=== PATIENT | female | born 1995 | race Hispanic/Latino ===

== ENCOUNTER 2017-10-18 08:50 | Emergency (ER) | payer OTHER ==
[2017-10-18 09:11] VITALS: BMI 32.5
[2017-10-18 09:14] VITALS: RESP 16
[2017-10-18 09:19] VITALS: TEMP 98.6
--- NOTE | 2017-10-18 09:59 | ED PDOC ---
Arrival/HPI - General Chief Complaint: GI Problem - History of Present Illness Narrative History of Present Illness (Text): 10/18/17 09:53 Pt is a 21 F with no significant PMH presents to ED with periumbilical pain that radiates to back since last night. Patient also complains of nausea, NBNB vomiting, and watery diarrhea over the same time period. Pt states this morning that pain is also in RLQ now. Pain was worsened during car ride to hospital. Pt denied CP, SOB, fever, chills, dysuria, GOETZ, dizziness. PMD: Cardiello Past Medical History - Provider Review Nursing Documentation Reviewed: Yes - Infectious Disease Hx of Infectious Diseases: None - Tetanus Immunization Tetanus Immunization: Unknown - Past Medical History Past Medical History: No Previous - Endocrine/Metabolic Hx Hypothyroidism: Yes - Psychiatric Hx Depression: No Hx Emotional Abuse: No Hx Physical Abuse: No Hx Substance Use: No - Past Surgical History Past Surgical History: No Previous - Anesthesia Hx Anesthesia: No - Suicidal Assessment Feels Threatened In Home Enviroment: No Family/Social History - Physician Review Nursing Documentation Reviewed: Yes Family/Social History: No Known Family HX Smoking Status: Never Smoked Hx Alcohol Use: Yes Frequency of alcohol use: Socially Hx Substance Use: No Hx Substance Use Treatment: No Allergies/Home Meds Allergies/Adverse Reactions: Allergies Sulfa (Sulfonamide Antibiotics) Allergy (Verified 10/18/17 09:07) REDNESS Review of Systems - Review of Systems Constitutional: Normal Eyes: Normal ENT: Normal Respiratory: Normal Cardiovascular: Normal Gastrointestinal: Abdominal Pain, Diarrhea, Nausea, Vomiting, Appetite Changes Genitourinary Female: Normal Musculoskeletal: Normal Skin: Normal Neurological: Normal Endocrine: Normal Hemo/Lymphatic: Normal Psychiatric: Normal Physical Exam Vital Signs Reviewed: Yes Vital Signs Temp Pulse Resp BP Pulse Ox 10/18/17 09:16 98.6 F 10/18/17 09:13 74 16 137/82 97 Temperature: Afebrile Blood Pressure: Normal Pulse: Regular Respiratory Rate: Normal Appearance: Positive for: Well-Appearing Pain Distress: Moderate Mental Status: Positive for: Alert and Oriented X 3 - Systems Exam Head: Present: Atraumatic, Normocephalic Extroacular Muscles: Present: EOMI Ears: Present: Normal Mouth: Present: Moist Mucous Membranes Nose (Internal): Present: Normal Inspection Neck: Present: Normal Range of Motion Respiratory/Chest: Present: Clear to Auscultation. No: Respiratory Distress, Accessory Muscle Use, Wheezes, Rales, Rhonchi Cardiovascular: Present: Regular Rate and Rhythm, Normal S1, S2. No: Murmurs Abdomen: Present: Tenderness (periumbilical), McBurney's Point Tender. No: Distention, Peritoneal Signs, Rebound, Guarding, Rovsing's Sign Present, Hernias Upper Extremity: Present: Normal Inspection Lower Extremity: Present: Normal Inspection Neurological: Present: GCS=15, CN II-XII Intact Skin: Present: Warm, Dry, Normal Color Psychiatric: Present: Alert, Oriented x 3 Medical Decision Making ED Course and Treatment: 10/18/17 10:03 Assessment: 21 yo F presents to ED with periumbilcal/RLQ abdominal pain. Plan: - CBC, CMP - Lipase - Coags - UA - Abd/pelvis CT with IV contrast 10/18/17 11:28 Abd/pelvis CT showed no acute findings, no evidence of appendicitis. 10/18/17 11:35 Results discussed with patient. Patient states that symptoms are unchanged, will trial Zofran and Toradol. Reassess after administration. 10/18/17 12:57 Pt feeling less nauseous and pain decreased after medications. Symptoms likely viral in nature. Advised patient to increase diet as tolerated, maintain hydration, and take medications as needed for symptomatic treatment. Follow up with Dr. Weinberg. - Lab Interpretations Lab Results: 10/18/17 10:00 10/18/17 10:00 Lab Results 10/18/17 10:32: PT 11.8, INR 1.03, APTT 30.1 10/18/17 10:08: Urine Color Yellow, Urine Appearance Clear, Urine pH 8.0, Ur Specific [place] 1.020, Urine Protein Negative, Urine Glucose (UA) Negative, Urine Ketones 40 H, Urine Blood Trace-intact H, Urine Nitrate Negative, Urine Bilirubin Negative, Urine Urobilinogen 0.2, Ur Leukocyte Esterase Negative, Urine RBC 2 - 5, Urine WBC 0 - 2, Ur Epithelial Cells 4 - 5, Amorphous Sediment Few, Urine Bacteria Mod, Urine Other Uyeast 10/18/17 10:00: Sodium 137, Potassium 4.1, Chloride 102, Carbon Dioxide 21, Anion Gap 19, BUN 9, Creatinine 0.5 L, Est GFR ( Amer) > 60, Est GFR (Non -Af Amer) > 60, Random Glucose 106, Calcium 9.8, Magnesium 1.9, Total Bilirubin 0.7, AST 28, ALT 38, Alkaline Phosphatase 62, Total Protein 8.0, Albumin 4.6, Globulin 3.4, Albumin/Globulin Ratio 1.3, Lipase 285 10/18/17 10:00: WBC 10.0, RBC 4.66, Hgb 14.8, Hct 43.5, MCV 93.3, MCH 31.8, MCHC 34.0, RDW 12.3, Plt Count 241, MPV 10.0, Gran % 84.6 H, Lymph % (Auto) 11.5 L, Rankin % (Auto) 3.2, Eos % (Auto) 0.3 L, Baso % (Auto) 0.4, Gran # 8.43 H , Lymph # (Auto) 1.2, Rankin # (Auto) 0.3, Eos # (Auto) 0.0, Baso # (Auto) 0.04 - RAD Interpretation Radiology Orders: 10/18/17 09:29 ABD & PELVIS IV CONTRAST ONLY [CT] Stat - Medication Orders Current Medication Orders: Discontinued Medications Ketorolac Tromethamine (Toradol) 30 mg IM STAT STA Stop: 10/18/17 11:34 Last Admin: 10/18/17 12:31 Dose: 30 mg MAR Pain Assessment Document 10/18/17 12:31 HI (Rec: 10/18/17 12:31 [id number] Pain Reassessment Is this a pain reassessment? Yes Sleep Is patient sleeping during reassessment? No Presence of Pain Presence of Pain Yes Location Pain Location Body Site Abdomen Description Description Constant IM Administration Charges Document 10/18/17 12:31 HI (Rec: 10/18/17 12:31 [id number]) Injection Site MAR Injection Site Right Arm Charges for Administration # of IM Administrations 1 Loperamide HCl (Imodium) 4 mg PO ONCE STA Stop: 10/18/17 11:58 Last Admin: 10/18/17 12:30 Dose: 4 mg Ondansetron HCl (Zofran Tab) 4 mg PO STAT STA Stop: 10/18/17 11:34 Last Admin: 10/18/17 12:30 Dose: 4 mg Disposition/Present on Arrival - Present on Arrival Any Indicators Present on Arrival: No History of DVT/PE: No History of Uncontrolled Diabetes: No Urinary Catheter: No History of Decub. Ulcer: No History Surgical Site Infection Following: None - Disposition Have Diagnosis and Disposition been Completed?: Yes Diagnosis: Gastroenteritis and colitis, viral Disposition: HOME/ ROUTINE Disposition Time: 11:48 Patient Plan: Discharge Patient Problems: Current Active Problems Problem Status Onset Gastroenteritis and colitis, viral Acute Condition: STABLE Discharge Instructions (ExitCare): Viral Gastroenteritis, Adult (DC) Additional Instructions: 1. Use Zofran as needed for nausea 2. Use Imodium as needed for diarrhea 3. May use [id number] Ibuprofen as needed; take with food 4. Maintain adequate hydration 5. Start with soft, bland diet and advance to normal diet slowly 6. Follow up with primary care doctor within 1 week 7. Return to ED if symptoms worsen (increasing abdominal pain, nausea, vomiting , diarrhea, fever) Prescriptions: Ondansetron [Zofran] 4 mg PO Q8H PRN #20 tab PRN Reason: Nausea/Vomiting Referrals: Hernandez Weinberg MD [Primary Care Provider] - Follow up with primary Forms: [employer] ([place])
[2017-10-18] MEDS ORDERED: Iohexol 350 MG/100 ML VIAL ONE (10:19)
[2017-10-18 10:23] LABS: BASO # 0.04 K/mm3 (0.0-2.0); BASO % 0.4 % (0.0-3.0); EOS % 0.3 % (1.5-5.0); GRAN # 8.43 (1.4-6.5); GRAN % 84.6 % (50.0-68.0); HEMOGLOBIN 14.8 g/dL (12.0-16.0); LYMPH # 1.2 (1.2-3.4); LYMPH % 11.5 % (22.0-35.0); MEAN CELL VOLUME 93.3 fl (80.0-105.0); MEAN CORPUSCULAR HEMOGLOBIN 31.8 pg (25.0-35.0); MONO # 0.3 (0.1-0.6); MONO % 3.2 % (1.0-6.0); RBC 4.66 10^6/uL (3.5-6.1); RED CELL DISTRIBUTION WIDTH 12.3 % (11.5-14.5)
[2017-10-18 10:26] LABS: URINE APPEARANCE CLEAR (CLEAR); URINE BILIRUBIN NEGATIVE (NEGATIVE); URINE BLOOD TRACE-INTACT (NEGATIVE); URINE COLOR YELLOW (YELLOW); URINE GLUCOSE (UA) NEGATIVE (NEGATIVE); URINE LEUKOCYTE ESTERASE NEGATIVE Leu/uL (NEGATIVE); URINE NITRATE NEGATIVE (NEGATIVE); URINE PROTEIN NEGATIVE mg/dL (<30 mg/dL); URINE UROBILINOGEN 0.2 E.U./dL (<1 E.U./dL)
[2017-10-18 10:33] LABS: ALB/GLOB RATIO 1.3 (1.1-1.8); ALBUMIN 4.6 g/dL (3.0-4.8); ALT/SGPT 38 U/L (7-56); AST/SGOT 28 U/L (14-36); BLOOD UREA NITROGEN 9 mg/dL (7-21); CALCIUM 9.8 mg/dL (8.4-10.5); GFR AFRICAN-AMERICAN > 60; GFR NON-AFRICAN AMERICAN > 60; LIPASE 285 U/L (23-300); MAGNESIUM 1.9 mg/dL (1.7-2.2)
[2017-10-18 10:41] LABS: URINE WBC 0 - 2 /hpf (0-6)
[2017-10-18 10:42] LABS: URINE AMORPHOUS SEDIMENT FEW; URINE BACTERIA MOD (NEG)
[2017-10-18 10:47] LABS: INR 1.03 (0.93-1.08); PARTIAL THROMBOPLASTIN TIME 30.1 Seconds (25.1-36.5); PROTHROMBIN TIME 11.8 SECONDS (9.4-12.5)
--- NOTE | 2017-10-18 11:24 | CT ---
PROCEDURE: CT Abdomen and Pelvis with contrast HISTORY: abdominal pain COMPARISON: None. TECHNIQUE: Contrast dose: 100 cc of Omni 350 Radiation dose: Total exam DLP = 695 mGy-cm. This CT exam was performed using one or more of the following dose reduction techniques: Automated exposure control, adjustment of the mA and/or kV according to patient size, and/or use of iterative reconstruction technique. FINDINGS: LOWER THORAX: Unremarkable. LIVER: Unremarkable. No gross lesion or ductal dilatation. GALLBLADDER AND BILE DUCTS: Unremarkable. PANCREAS: Unremarkable. No gross lesion or ductal dilatation. SPLEEN: Unremarkable. ADRENALS: Unremarkable. No mass. KIDNEYS AND URETERS: Unremarkable. No hydronephrosis. No solid mass. VASCULATURE: Unremarkable. No aortic aneurysm. BOWEL: Unremarkable. No obstruction. No gross mural thickening. APPENDIX: Normal appendix. PERITONEUM: Unremarkable. No free fluid. No free air. LYMPH NODES: Unremarkable. No enlarged lymph nodes. BLADDER: Unremarkable. REPRODUCTIVE: Unremarkable. BONES: No acute fracture. OTHER FINDINGS: None. IMPRESSION: No acute findings. No evidence of appendicitis
[2017-10-18 14:14] VITALS: BP 132/72; PULSE 72; O2SAT 99
== END 2017-10-18 13:30 | disposition home or self-care (01) ==
LOC: ED 08:50
DX: A08.4 Viral intestinal infection, unspecified (principal)
CPT/HCPCS: 74177; 80053; 81001; 83690; 83735; 85025; 85610; 85730; 96372; 99284; J1885; Q9967